=== PATIENT | male | born 1970 | race Caucasian/White ===

== ENCOUNTER 2018-03-17 13:51 | Emergency (ER) | payer OTHER ==
[2018-03-17 13:58] VITALS: RESP 16
--- NOTE | 2018-03-17 14:14 | ED ---
Upper Extremity HPI - General Chief Complaint: Extremity Injury, Upper Stated Complaint: Wrist pain Time Seen by Provider: 03/17/18 13:58 Source: patient, RN notes reviewed Mode of arrival: ambulatory Limitations: no limitations - History of Present Illness Initial Comments: 48-year-old male presents emergency Department chief complaint of right thumb and wrist pain. Patient states it's progressively worse over the last 1 month. He had no trauma. He does admit that he has primary left hand dominant though he is ambidextrous and uses his hands quite frequently at work. Patient states he knows he has some underlying carpal tunnel in which he wakes up with numbness and tingling in his hands. Patient denies any redness, fever or chills. Denies any paresthesias. - Related Data Previous Rx's Medication Instructions Recorded Cephalexin [Keflex] 500 mg PO Q12HR 10 Days cap 10/02/15 Ibuprofen [Motrin] 600 mg PO Q6HR PRN #20 day 10/02/15 predniSONE 50 mg PO DAILY #5 tab 03/17/18 Allergies Allergy/AdvReac Type Severity Reaction Status Date / Time No Known Allergies Allergy Verified 03/17/18 13:58 Review of Systems ROS Statement: Those systems with pertinent positive or pertinent negative responses have been documented in the HPI. ROS Other: All systems not noted in ROS Statement are negative. Past Medical History Past Medical History: No Reported History History of Any Multi-Drug Resistant Organisms: None Reported Past Surgical History: Cholecystectomy Past Psychological History: No Psychological Hx Reported Smoking Status: Never smoker Past Alcohol Use History: Occasional Past Drug Use History: None Reported General Exam Limitations: no limitations General appearance: alert, in no apparent distress Head exam: Present: atraumatic, normocephalic, normal inspection Eye exam: Present: normal appearance, PERRL, EOMI. Absent: scleral icterus, conjunctival injection, periorbital swelling Respiratory exam: Present: normal lung sounds bilaterally. Absent: respiratory distress, wheezes, rales, rhonchi, stridor Cardiovascular Exam: Present: regular rate, normal rhythm, normal heart sounds. Absent: systolic murmur, diastolic murmur, rubs, gallop, clicks Extremities exam: Present: other (Right wrist there is tenderness over the radial aspect of the wrist, patient has severe discomfort with Sander's test, neurovascular intact Refill less than 2 seconds) Skin exam: Present: warm, dry, intact, normal color. Absent: rash Course Vital Signs 03/17/18 13:56 Temperature 98.4 F Pulse Rate 69 Respiratory 16 Rate Blood Pressure 116/69 O2 Sat by Pulse 98 Oximetry Medical Decision Making - Medical Decision Making 48-year-old male presents emergency from for right wrist pain. Patient has dequervains tenosynovitis. Patient will be she was steroids, thumb spica splint. He'll follow-up with orthopedics for possible joint injection, wrist MRI. Return parameters were discussed. Disposition Clinical Impression: De Quervain's disease (radial styloid tenosynovitis) Disposition: HOME SELF-CARE Condition: Stable Instructions: De Quervain Disease (ED) Additional Instructions: Please return to the Emergency Department if symptoms worsen or any other concerns. Prescriptions: predniSONE 50 mg PO DAILY #5 tab Is patient prescribed a controlled substance at d/c from ED?: No Referrals: Rudy Griffiths DO [Primary Care Provider] - 1-2 days Damon Bledsoe DO [Doctor of Osteopathic Medicine] - 1-2 days Time of Disposition: 14:49
--- NOTE | 2018-03-17 14:45 | XR ---
Right wrist HISTORY: Wrist pain x1 month 4 views of the right wrist correlated right hand 10/02/2015 Bone mineralization, joint spaces and alignment are maintained. Some remodeling at the radiocarpal [place] int again noted. No fracture or dislocation. IMPRESSION: No acute abnormality. Wrist MRI may be of benefit.
[2018-03-17 15:07] VITALS: BP 113/78; PULSE 70; TEMP 98
== END 2018-03-17 15:07 | disposition home or self-care (01) ==
LOC: EC 13:51
DX: M65.4 Radial styloid tenosynovitis [de Quervain] (principal)
CPT/HCPCS: 99283

== ENCOUNTER 2020-09-18 09:02 | Day surgery (SDC) | payer OTHER ==
[2020-09-17 09:47] VITALS: BMI 24.7
[~2020-09-18 09:02] MED LIST: LACTATED RINGERS 1,000 ML IV SCH
[2020-09-18] MEDS ORDERED: LIDOCAINE 1% (10MG/ML) FOR IV START INTRADERMA ONE (09:37)
[2020-09-18 09:38] VITALS: TEMP 97
[2020-09-18] MEDS ORDERED: PROPOFOL 10 MG/ML 20 ML VIAL IV ONE (10:17)
[2020-09-18] MEDS ORDERED: LIDOCAINE 1% INJ 10MG/ML (20 ML MDV) ONE (10:17)
--- NOTE | 2020-09-18 10:53 | P.PCN ---
Date of Procedure: 09/18/20 Description of Procedure: BRIEF HISTORY: Patient is a 50-year-old male presenting for outpatient colonoscopy for evaluation of change in bowel habits. Patient reports a long-standing history of abdominal issues. He reports diffuse abdominal pain and distention. He reports alternating constipation and diarrhea. 2 prior colonoscopies which she believes were normal. PROCEDURE PERFORMED: Colonoscopy with biopsy. PREOPERATIVE DIAGNOSIS: Change in bowel habits, patient was last colonoscopy approximately 10 years of. ESTIMATED BLOOD LOSS: Minimal. IV sedation per Anesthesia. PROCEDURE: After informed consent was obtained, the patient, was brought into the endoscopy unit. IV sedation was administered by Anesthesia under continuous monitoring. Digital rectal examination was normal. Initially the Olympus CF-190 flexible video colonoscope was then inserted in the rectum, gradually advanced into the cecum without any difficulty. Careful examination was performed as the scope was gradually being withdrawn. Ileocecal valve and the appendiceal orifice were visualized and appeared normal. Prep was excellent. Mucosa of the cecum, ascending colon, transverse colon, descending colon, sigmoid colon, and rectum appeared normal except for some mild prep related changes in the rectum , with random biopsies taken of the right and left colon. Normal-appearing terminal ileum with biopsies taken. Retroflexion was performed in the rectum and no lesions were seen, low-grade internal hemorrhoids seen. The patient tolerated the procedure well. IMPRESSION: Normal-appearing colon from rectum to cecum and terminal ileum with random biopsies taken of the right colon, left colon and terminal ileum. Internal hemorrhoids. RECOMMENDATIONS: Findings of this examination were discussed with the patient and his family. Okay to resume diet. Okay to resume medications. Await pathology from biopsies. Extensive discussion with the patient regarding dietary modifications. Recommend repeat colonoscopy for screening in 10 years or sooner if signs or symptoms which weren't further evaluation developed.
[2020-09-18 11:18] VITALS: BP 97/58; PULSE 53; RESP 16
== END 2020-09-18 11:40 | disposition home or self-care (01) ==
LOC: ORWHC2ENDO 09:02
PROVIDERS: ATTEND Internal Medicine
DX: K64.8 Other hemorrhoids (principal); K59.00 Constipation, unspecified; R19.7 Diarrhea, unspecified; Z85.828 Personal history of other malignant neoplasm of skin; Z79.899 Other long term (current) drug therapy
CPT/HCPCS: 88305; 45380; J2001; J2704

== ENCOUNTER 2022-11-20 23:02 | Emergency (ER) | payer OTHER ==
[2022-11-21 00:04] VITALS: RESP 18
[2022-11-21] MEDS ORDERED: ACETAMINOPHEN TAB 500 MG TAB PO STA (01:22)
--- NOTE | 2022-11-21 01:52 | ED ---
Head Injury HPI - General Chief complaint: Trauma Stated complaint: Fall, head injury Time Seen by Provider: 11/21/22 01:11 Source: patient Mode of arrival: ambulatory - History of Present Illness Initial comments: Patient is a 52-year-old male presents the emergency department for fall. Patient fell on a slippery boat lift hitting his head. Patient is a back of his head he did not lose consciousness. He is not on blood thinners. Patient initially had headache and left wrist pain which resolved on its own. He denies neck pain, nausea, vomiting, double vision, blurry vision. - Related Data Home Medications Medication Instructions Recorded Confirmed traZODone HCL 100 mg PO HS 09/17/20 09/18/20 Allergies/Adverse reactions: Allergies Allergy/AdvReac Type Severity Reaction Status Date / Time No Known Allergies Allergy Verified 09/18/20 09:27 Review of Systems ROS Statement: Those systems with pertinent positive or pertinent negative responses have been documented in the HPI. ROS Other: All systems not noted in ROS Statement are negative. Past Medical History Past Medical History: Cancer Additional Past Medical History / Comment(s): Skin cancer on nose. History of Any Multi-Drug Resistant Organisms: None Reported Past Surgical History: Cholecystectomy Additional Past Surgical History / Comment(s): Skin cancer on nose removed. Past Anesthesia/Blood Transfusion Reactions: No Reported Reaction, Motion Sickness Past Psychological History: No Psychological Hx Reported Smoking Status: Never smoker Past Alcohol Use History: Occasional Past Drug Use History: None Reported - Past Family History Father Family Medical History: Cancer Additional Family Medical History / Comment(s): Skin Cancer. Mother Family Medical History: Cancer Additional Family Medical History / Comment(s): Skin Cancer. General Exam General appearance: alert, in no apparent distress Head exam: Present: atraumatic, normocephalic, normal inspection Eye exam: Present: normal appearance, PERRL, EOMI. Absent: scleral icterus, conjunctival injection, periorbital swelling Neck exam: Present: normal inspection. Absent: tenderness, meningismus, lymphadenopathy Respiratory exam: Present: normal lung sounds bilaterally. Absent: respiratory distress, wheezes, rales, rhonchi, stridor Cardiovascular Exam: Present: regular rate, normal rhythm, normal heart sounds. Absent: systolic murmur, diastolic murmur, rubs, gallop, clicks Extremities exam: Present: normal inspection, full ROM, normal capillary refill. Absent: tenderness Neurological exam: Present: alert, oriented X3, CN II-XII intact Expanded Cranial nerves: Facial Sensation: Normal, Facial Palsy with Forehead Movement: Normal, Facial Palsy without Forehead Movement: Normal Cerebellar function: Finger to Nose: Normal Sensory exam: Upper Extremity Light Touch: Normal, Lower Extremity Light Touch: Normal Motor strength exam: RUE: 5, LUE: 5, RLE: 5, LLE: 5 Psychiatric exam: Present: normal affect, normal mood Skin exam: Present: warm, dry, intact, normal color. Absent: rash Course Vital Signs 11/20/22 11/21/22 23:59 02:04 Temperature 97.8 F 98 F Pulse Rate 61 59 L Respiratory 18 18 Rate Blood Pressure 122/82 141/95 O2 Sat by Pulse 100 98 Oximetry Medical Decision Making - Medical Decision Making Was pt. sent in by a medical professional or institution (, PA, CONTENT ARCHITECT, urgent care, hospital, or residential...) When possible be specific @ -No Did you speak to anyone other than the patient for history (EMS, parent, family, police, friend...)? What history was obtained from this source @ -No Did you review nursing and triage notes (agree or disagree)? Why? @ -I reviewed and agree with nursing and triage notes Were old charts reviewed (outside hosp., previous admission, EMS record, old EKG, old radiological studies, urgent care reports/EKG's, residential records)? Report findings @ -No old charts were reviewed Differential Diagnosis (chest pain, altered mental status, abdominal pain women, abdominal pain men, vaginal bleeding, weakness, fever, dyspnea, syncope, headache, dizziness, GI bleed, back pain, seizure, CVA, palpatations, mental health)? @ -Differential Headache: Migraine, tension, cluster, carbon monoxide, central venous thrombosis, pension karma temporal arteritis, acute closure glaucoma, intercranial hemorrhage, mastoiditis, sinusitis, head injury, this is not meant to be an all-inclusive list. EKG interpreted by me (3pts min.). @ -None X-rays interpreted by me (1pt min.). @ -None done CT interpreted by me (1pt min.). @ -None done U/S interpreted by me (1pt. min.). @ -None done What testing was considered but not performed or refused? (CT, X-rays, U/S, labs)? Why? @ - Considered CT imaging of the brain however not clinically indicated What meds were considered but not given or refused? Why? @ -None Did you discuss the management of the patient with other professionals (professionals i.e. , PA, CONTENT ARCHITECT, lab, RT, psych nurse, adoption social worker, superintendent, teacher, bank operations officer, special education case manager)? Give summary @ -No Was smoking cessation discussed for >3mins.? @ -No Was critical care preformed (if so, how long)? @ -No Were there social determinants of health that impacted care today? How? (Homelessness, low income, unemployed, alcoholism, drug addiction, transportation, low edu. Level, literacy, decrease access to med. care, fci, rehab)? @ -No Was there de-escalation of care discussed even if they declined (Discuss DNR or withdrawal of care, Hospice)? DNR status @ -No What co-morbidities impacted this encounter? (DM, HTN, Smoking, COPD, CAD, Cancer, CVA, ARF, Chemo, Hep., AIDS, mental health diagnosis, sleep apnea, morbid obesity)? @ -None Was patient admitted / discharged? Hospital course, mention meds given and route, prescriptions, significant lab abnormalities, going to OR and other pertinent info. @ -This is a well-appearing 52-year-old male who sustained low-impact head injury. No loss of consciousness, no blood thinner use, no hematoma, no vomiting. Patient asymptomatic currently. GCS 15. CT imaging not indicated. was adamant on computed tomography scan of the brain however after talking with patient and they no longer request CT. Patient in stable medical condition for discharge. We discussed return parameters. Undiagnosed new problem with uncertain prognosis? @ -No Drug Therapy requiring intensive monitoring for toxicity (Heparin, Nitro, Insulin, Cardizem)? @ -No Were any procedures done? @ -No Diagnosis/symptom? @ -fall, minor head injury Acute, or Chronic, or Acute on Chronic? @ -acute Uncomplicated (without systemic symptoms) or Complicated (systemic symptoms)? @ -uncomplicated Side effects of treatment? @ -No Exacerbation, Progression, or Severe Exacerbation? @ -No Poses a threat to life or bodily function? How? (Chest pain, [place], [place], pneumonia, PE, COPD, DKA, ARF, appy, cholecystitis, CVA, Diverticulitis, Homicidal, Suicidal, threat to staff... and all critical care pts) @ -No Dr. Montana is my attending Disposition Clinical Impression: Minor head injury, Fall Disposition: HOME SELF-CARE Condition: Good Instructions (If sedation given, give patient instructions): Concussion (ED) Additional Instructions: Take Tylenol for pain. Avoid anti inflammatory medications for the next 48 hours due to head injury. Follow-up with primary care provider in one to 2 days. Return to the emergency department if you experience new, concerning, or worsening symptoms. Is patient prescribed a controlled substance at d/c from ED?: No Referrals: Rudy Griffiths DO [Primary Care Provider] - 1-2 days
[2022-11-21 02:06] VITALS: BP 141/95; PULSE 59; TEMP 98
== END 2022-11-21 02:04 | disposition home or self-care (01) ==
LOC: EC 23:02
DX: S09.90XA Unspecified injury of head, initial encounter (principal); W01.198A Fall on same level from slipping, tripping and stumbling with subsequent striking against other object, initial encounter
CPT/HCPCS: 99283

== ENCOUNTER → 2024-06-04 | Outpatient (CLI) | payer OTHER ==
[2024-06-04 10:01] LABS: Appearance,Urine Clear (Clear); Bilirubin,Urine Negative (Negative); Blood,Urine Negative (Negative); Color,Urine Yellow; Glucose,Urine (UA) Negative (Negative); Ketones,Urine Negative (Negative); Leukocyte Esterase,Urine Negative (Negative); Nitrite,Urine Negative (Negative); Protein,Urine Negative (Negative); Specific Gravity,Urine 1.026 (1.001-1.035); Urobilinogen,Urine <2.0 mg/dL (<2.0)
[2024-06-04 16:56] LABS: HCT 42.4 % (39.6-50.0); MCH 32.7 pg (27.0-32.0); MCV 99.1 FL (80.0-97.0); Mean Platelet Volume 10.7 FL (9.5-12.2); NRBC Per 100 WBC 0 X 10*3/uL (0.00-0.01); Platelet Count 305 X 10*3/uL (140-440); RBC 4.28 X 10*6/uL (4.40-5.60); RDW 11.9 % (11.5-14.5); WBC 3.96 X 10*3/uL (4.50-10.00)
[2024-06-04 18:09] LABS: ALT 15 U/L (10-49); AST 19 U/L (14-35); Albumin 4.4 g/dL (3.8-4.9); Albumin/Globulin Ratio 1.91 Ratio (1.60-3.17); Alkaline Phosphatase 65 U/L (41-126); Blood Urea Nitrogen 12.5 mg/dL (9.0-27.0); Calcium 9.4 mg/dL (8.7-10.3); Carbon Dioxide 27.4 mmol/L (21.6-31.8); Chloride 105 mmol/L (96-109); Chol/HDL Ratio 2.62 Ratio; Globulin 2.3 g/dL (1.6-3.3); Glucose 98 mg/dL (70-110); LDL Cholesterol,Calculated 116.4 mg/dL (0.0-131.0); Potassium 4.5 mmol/L (3.5-5.5); Sodium 142 mmol/L (135-145); Total Bilirubin 0.5 mg/dL (0.3-1.2); Total Protein 6.7 g/dL (6.2-8.2); VLDL Calculation 7.42 mg/dL (5.00-40.00)
[2024-06-04 18:10] LABS: Prostate Specific Antigen 1.55 ng/mL (0.000-3.500)
== END | disposition home or self-care (01) ==
LOC: LABWHC1 08:37
PROVIDERS: ATTEND Family Medicine
DX: Z00.00 Encounter for general adult medical examination without abnormal findings (principal)
CPT/HCPCS: 36415; 80053; 80061; 81003; 83036; 84153; 84443; 85027

== ENCOUNTER → 2024-06-07 | Outpatient (CLI) | payer OTHER ==
[2024-06-07 10:29] LABS: Basophils # (A) 0.1 k/uL (0-0.2); Basophils % (A) 2 %; Eosinophils # (A) 0.4 k/uL (0-0.7); Eosinophils % (A) 7 %; HCT 40.6 % (39.0-53.0); HGB 13.3 gm/dL (13.0-17.5); Lymphocytes # (A) 1.7 k/uL (1.0-4.8); Lymphocytes % (A) 34 %; MCH 32.3 pg (25.0-35.0); MCHC 32.6 g/dL (31.0-37.0); MCV 98.9 fL (80.0-100.0); Mean Platelet Volume 7.5; Monocytes # (A) 0.3 k/uL (0-1.0); Monocytes % (A) 6 %; Neutrophils # (A) 2.5 k/uL (1.3-7.7); Neutrophils % (A) 49 %; Platelet Count 289 k/uL (150-450); RBC 4.11 m/uL (4.30-5.90); RDW 11.9 % (11.5-15.5)
[2024-06-07 14:15] LABS: RBC Morphology Normal
== END | disposition home or self-care (01) ==
LOC: LABWHC1 09:33
PROVIDERS: ATTEND Family Medicine
DX: D72.819 Decreased white blood cell count, unspecified (principal)
CPT/HCPCS: 36415; 85025

== ENCOUNTER 2024-07-22 15:18 | Emergency (ER) | payer OTHER ==
[2024-07-22 15:22] VITALS: RESP 18
--- NOTE | 2024-07-22 15:54 | ED ---
General Adult HPI - General Chief complaint: Extremity Problem,Nontraumatic Stated complaint: Left knee injury Time Seen by Provider: 07/22/24 15:24 Source: patient, RN notes reviewed Mode of arrival: wheelchair Limitations: no limitations - History of Present Illness Initial comments: 54-year-old male presents to the emergency department for evaluation of left knee pain. Patient states that this has happened to him intermittently after kneeling. He states that today the same thing happened but he has not been able to get relief from this. He reports that it feels like his knee "pops" out of place. - Related Data Home Medications Medication Instructions Recorded Confirmed traZODone HCL 100 mg PO HS 09/17/20 09/18/20 Previous Rx's Medication Instructions Recorded Acetaminophen-Codeine 300-30mg 1 tab PO Q6H PRN 3 Days #12 tablet 07/22/24 [Tylenol w/codeine #3] Ibuprofen [Motrin] 800 mg PO Q8HR #15 tab 07/22/24 Allergies Allergy/AdvReac Type Severity Reaction Status Date / Time No Known Allergies Allergy Verified 07/22/24 15:22 Review of Systems ROS Statement: Those systems with pertinent positive or pertinent negative responses have been documented in the HPI. ROS Other: All systems not noted in ROS Statement are negative. Past Medical History Past Medical History: Cancer Additional Past Medical History / Comment(s): Skin cancer on nose. History of Any Multi-Drug Resistant Organisms: None Reported Past Surgical History: Cholecystectomy Additional Past Surgical History / Comment(s): Skin cancer on nose removed. Past Anesthesia/Blood Transfusion Reactions: No Reported Reaction, Motion Sickness Past Psychological History: No Psychological Hx Reported Smoking Status: Never smoker Past Alcohol Use History: Occasional Past Drug Use History: None Reported - Past Family History Father Family Medical History: Cancer Additional Family Medical History / Comment(s): Skin Cancer. Mother Family Medical History: Cancer Additional Family Medical History / Comment(s): Skin Cancer. General Exam Limitations: no limitations General appearance: alert, in no apparent distress Head exam: Present: atraumatic, normocephalic, normal inspection ENT exam: Present: normal exam, mucous membranes moist Respiratory exam: Present: normal lung sounds bilaterally. Absent: respiratory distress, wheezes, rales, rhonchi, stridor Cardiovascular Exam: Present: regular rate, normal rhythm, normal heart sounds. Absent: systolic murmur, diastolic murmur, rubs, gallop, clicks Extremities exam: Present: tenderness (Decreased range of motion of the left knee, tenderness palpation of the medial knee. Palpable swelling to the left knee with no overlying erythema or warmth), normal capillary refill. Absent: full ROM, pedal edema, joint swelling, calf tenderness Neurological exam: Present: alert, oriented X3 Psychiatric exam: Present: normal affect, normal mood Skin exam: Present: warm, dry, intact, normal color. Absent: rash Course Vital Signs 07/22/24 07/22/24 15:19 17:27 Temperature 97.5 F L 98.0 F Pulse Rate 68 72 Respiratory 18 18 Rate Blood Pressure 121/81 126/73 O2 Sat by Pulse 100 100 Oximetry Medical Decision Making - Medical Decision Making Was pt. sent in by a medical professional or institution (Dr. PA, CHEMISTRY PHYSICS TEACHER, urgent care, hospital, or longterm...) When possible be specific @ -No Did you speak to anyone other than the patient for history (EMS, parent, family, police, friend...)? What history was obtained from this source @ -No Did you review nursing and triage notes (agree or disagree)? Why? @ -I reviewed and agree with nursing and triage notes Were old charts reviewed (outside hosp., previous admission, EMS record, old EKG, old radiological studies, urgent care reports/EKG's, longterm records)? Report findings @ -No old charts were reviewed Differential Diagnosis (chest pain, altered mental status, abdominal pain women, abdominal pain men, vaginal bleeding, weakness, fever, dyspnea, syncope, headache, dizziness, GI bleed, back pain, seizure, CVA, palpatations, mental health, musculoskeletal)? @ -Differential Musculoskeletal Muscular strain, contusion, ligament sprain, fracture, arthritis, septic arthritis, bursitis, cellulitis, muscle spasm, nerve compression, DVT, arterial occlusion, herpes zoster, electrolyte abnormality, tumor.... This is not meant to be in all inclusive list] EKG interpreted by me (3pts min.). @ -None X-rays interpreted by me (1pt min.). @ -X-ray of the left knee shows no evidence of acute fracture or dislocation, moderate joint effusion CT interpreted by me (1pt min.). @ -None done U/S interpreted by me (1pt. min.). @ -None done What testing was considered but not performed or refused? (CT, X-rays, U/S, labs)? Why? @ -None What meds were considered but not given or refused? Why? @ -None Did you discuss the management of the patient with other professionals (professionals i.e. Dr., PA, CHEMISTRY PHYSICS TEACHER, lab, RT, psych nurse, social work supervisor, respiratory care assistant, teacher, public health service officer, case sealer)? Give summary @ -No Was smoking cessation discussed for >3mins.? @ -No Was critical care preformed (if so, how long)? @ -No Were there social determinants of health that impacted care today? How? (Homel essness, low income, unemployed, alcoholism, drug addiction, transportation, low edu. Level, literacy, decrease access to med. care, fdc, rehab)? @ -No Was there de-escalation of care discussed even if they declined (Discuss DNR or withdrawal of care, Hospice)? DNR status @ -No What co-morbidities impacted this encounter? (DM, HTN, Smoking, COPD, CAD, Cancer, CVA, ARF, Chemo, Hep., AIDS, mental health diagnosis, sleep apnea, morbid obesity)? @ -None Was patient admitted / discharged? Hospital course, mention meds given and route, prescriptions, significant lab abnormalities, going to OR and other pertinent info. @ -Discharge. Patient presented emergency department for evaluation of left knee pain. There is no evidence of infection, no overlying erythema or warmth. Patient has no systemic symptoms. X-rays were obtained revealing no evidence of acute fracture or dislocation, there is a moderate joint effusion. Patient will be discharged home I advised him to follow-up with orthopedics. He is understanding agreeable with this plan. Patient stable at time of discharge. Case discussed with Dr. Montana Undiagnosed new problem with uncertain prognosis? @ -No Drug Therapy requiring intensive monitoring for toxicity (Heparin, Nitro, Insulin, Cardizem)? @ -No Were any procedures done? @ -No Diagnosis/symptom? @ -Knee pain, bursitis Acute, or Chronic, or Acute on Chronic? @ -acute Uncomplicated (without systemic symptoms) or Complicated (systemic symptoms)? @ -uncomplicated Side effects of treatment? @ -No Exacerbation, Progression, or Severe Exacerbation? @ -No Poses a threat to life or bodily function? How? (Chest pain, [place], [place], pneumonia, PE, COPD, DKA, ARF, appy, cholecystitis, CVA, Diverticulitis, Homicidal, Suicidal, threat to staff... and all critical care pts) @ -No Disposition Clinical Impression: Knee joint effusion Disposition: HOME SELF-CARE Condition: Stable Instructions (If sedation given, give patient instructions): Swollen Knee Joint (ED) Additional Instructions: Please follow up with orthopedics. Return to the emergency department for new or worsening symptoms. Prescriptions: Ibuprofen [Motrin] 800 mg PO Q8HR #15 tab Acetaminophen-Codeine 300-30mg [Tylenol w/codeine #3] 1 tab PO Q6H PRN 3 Days #12 tablet PRN Reason: Pain Is patient prescribed a controlled substance at d/c from ED?: No Referrals: Rudy Griffiths DO [Primary Care Provider] - 1-2 days Jasvir Miller MD [Medical Doctor] - 1-2 days
--- NOTE | 2024-07-22 16:41 | XR ---
EXAMINATION TYPE: XR knee 4V LT DATE OF EXAM: 07/22/2024 4:35 PM COMPARISON: None. CLINICAL INDICATION: Male, 54 years old with history of pain; PHH, pain TECHNIQUE: XR knee 4V LT views submitted.. FINDINGS: No acute fracture or dislocation. No unexpected radiopaque foreign body. Mild tricompartmen kieran degenerative osteoarthritis. Moderate suprapatellar joint effusion. IMPRESSION: 1. No acute osseous pathology. 2. Mild tricompartmental osteoarthritic changes. 3. Moderate left knee suprapatellar joint effusion. [facility], , 07/22/2024 4:39 PM
[2024-07-22] MEDS: ACET/COD 300 MG/30 MG STARTER PACK 6 TAB BTL PO STA (17:25)
[2024-07-22 17:28] VITALS: BP 126/73; PULSE 72; TEMP 98
== END 2024-07-22 17:28 | disposition home or self-care (01) ==
LOC: EC 15:18
DX: M25.462 Effusion, left knee (principal)
CPT/HCPCS: 99283

== ENCOUNTER → 2024-09-07 | Outpatient (CLI) | payer OTHER ==
--- NOTE | 2024-09-07 13:54 | US ---
EXAMINATION TYPE: US venous doppler duplex LE LT DATE OF EXAM: 09/07/2024 1:27 PM COMPARISON: NONE CLINICAL INDICATION: Male, 54 years old with history of I80.9 PHLEBITIS THROMBOPHLEBITIS; left pain a fter knee procedure 15 days ago and recent flight, no h/o dvt TECHNIQUE: The lower extremity deep venous system is examined utilizing real time linear array sonog brenda with graded compression, color doppler sonography, and spectral doppler. SIDE PERFORMED: Left FINDINGS: VESSELS IMAGED: Common Femoral Vein Deep Femoral Vein Greater Saphenous Vein * Femoral Vein Popliteal Vein Small Saphenous Vein * Proximal Calf Veins (* superficial vessels) Left Leg: Negative for DVT, Color Doppler imaging shows patency of the vessels. Spectral waveforms a re within normal limits. Predominant anechoic 5.0cm medial superior calf fluid noted. No internal col or flow identified. Office notified of results IMPRESSION: 1. No evidence of deep vein thrombosis of the left lower extremity. 2. Predominantly anechoic fluid collection within the left superior calf soft tissues without interna l color flow. This may represent a Martinez's cyst extension/rupture versus seroma. Correlate clinically . [facility], , 09/07/2024 1:52 PM
== END | disposition home or self-care (01) ==
LOC: RADUSWWP 13:06
PROVIDERS: ATTEND Orthopaedic Surgery Sports Medicine
DX: I80.9 Phlebitis and thrombophlebitis of unspecified site (principal); M17.12 Unilateral primary osteoarthritis, left knee